=== PATIENT | male | born 1970 | race Hispanic/Latino ===

== ENCOUNTER 2017-08-12 01:57 | Observation (INO) | payer OTHER ==
[~2017-08-12] VITALS: Ht 167.6 cm; Wt 96.2 kg
[~2017-08-12 01:57] MED LIST: CLON2TAB11 PO; FENO135C4 PO; GABA-326 PO; GLYB-228 PO; LINA5TAB PO; LOSA50TA37 PO; METH500T6 PO; OXCA600T10 PO; PREG100C PO; ROSU20TA PO; TRAM50TA4 PO; VENL75TA63 PO; ZIPR80CA21 PO
[2017-08-12 02:16] LABS: APPEARANCE,URINE Clear (CLEAR); BILIRUBIN,URINE Negative (NEGATIVE); COLOR,URINE Yellow (YELLOW); GLUCOSE, URINE (UA) >=1000 mg/dL (NEGATIVE); KETONES,URINE Negative (NEGATIVE); LEUKOCYTE ESTERASE ,URINE Negative (NEGATIVE); NITRATE,URINE Negative (NEGATIVE); OCCULT BLOOD,URINE Negative (NEGATIVE); PH,URINE 5.5 (5.0-8.0); PROTEIN,URINE Negative (NEGATIVE); UROBILINOGEN,URINE 0.2 mg/dL (0.2-1.0)
[2017-08-12 02:24] LABS: BASOPHILS % (AUTO) 0.6 % (0.0-5.0); EOSINOPHILS % (AUTO) 4.5 % (0.0-8.0); HEMATOCRIT 44.5 % (42-54); LYMPHOCYTES % (AUTO) 21.2 % (21.0-51.0); MEAN CORPUSCULAR HEMOGLOBIN 30.1 pg (27.0-33.0); MEAN CORPUSCULAR HGB CONC 35.3 g/dL (32.0-36.0); MEAN CORPUSCULAR VOLUME 85.2 fL (79-99); MONOCYTES % (AUTO) 8.7 % (3.0-13.0); NUCLEATED RED BLOOD CELLS 0.1 % (0.0-0.19); PLATELET COUNT (AUTO) 319 K/uL (130-400); RED BLOOD CELL COUNT(AUTO) 5.22 MIL/uL (4.50-6.20); RED CELL DISTRIBUTION WIDTH 13.2 % (11.0-15.5); WHITE BLOOD COUNT (AUTO) 13.1 K/uL (4.8-10.8)
[2017-08-12 02:33] LABS: CREATININE 1.1 mg/dL (0.5-1.5); POTASSIUM 4.3 mmol/L (3.5-5.1)
[2017-08-12 02:33] LABS: BACTERIA,URINE Rare /HPF (None Seen); RBC,URINE 0-1 /HPF (0-1); SQUAMOUS EPITHELIAL CELL,UR 0-2 /HPF (0-2); WBC,URINE None Seen /HPF (0-1)
[2017-08-12 02:37] LABS: ALBUMIN 3.7 g/dL (3.5-5.0); BILIRUBIN,TOTAL 0.9 mg/dL (0.2-1.0); TOTAL PROTEIN, SERUM 8.7 g/dL (6.0-8.3)
[2017-08-12] MEDS ORDERED: ONDANSETRON HCL 4 MG/2 ML VIAL ONE (02:47)
[2017-08-12] MEDS ORDERED: KETOROLAC TROMETHAMINE 30MG/ML ONE (02:52)
[2017-08-12] MEDS ORDERED: INSULIN HUMULIN R 100 UNIT/ML 3ML ONE ×2 (02:53→12:31)
[2017-08-12] MEDS ORDERED: SODIUM CHLORIDE 0.9% 1000ML 1,000 ML IV ONE (05:35)
[2017-08-12 05:42] LABS: HEMOGLOBIN A1C 8.8 % (4.0-6.0)
[2017-08-12] MEDS ORDERED: MORPHINE SULFATE 2 MG/ML 1ML SYG IVP PRN (05:45)
[2017-08-12] MEDS ORDERED: ONDANSETRON HCL MDV 20ML 2 MG/ML VIAL IVP PRN (05:45)
[2017-08-12] MEDS ORDERED: SODIUM CHLORIDE 0.9% 1000ML 1,000 ML IV SCH (05:45)
[2017-08-12 05:50] LABS: CHOLESTEROL 161 mg/dL (<200); HDL CHOLESTEROL 24 mg/dL (29-71); LDL DIRECT 94 mg/dL (0-99); TRIGLYCERIDES 315 mg/dL (30-200)
[2017-08-12] MEDS ORDERED: MORPHINE SULFATE 2 MG/ML 1ML SYG ONE (08:44)
[2017-08-12 14:17] VITALS: BP 144/95
[2017-08-12] MEDS ORDERED: MORPHINE SULFATE 2 MG/ML 1ML SYG IV PRN (14:45)
[2017-08-12] MEDS: LACTATED RINGERS 1000ML 1,000 ML IV SCH (16:11)
[2017-08-12] MEDS: INSULIN R PO SS1 SQ SCH ×2 (16:30→21:00)
[2017-08-12 17:00] VITALS: BP 155/98
[2017-08-12 19:53] VITALS: BP 145/80
[2017-08-12 23:47] VITALS: BP 121/78
[2017-08-13] MEDS: HYDROCODONE/ACETAMINOPHEN 7.5/325 MG TAB PO PRN ×2 (00:52→08:47)
[2017-08-13 03:59] VITALS: BP 128/83
[2017-08-13 05:35] LABS: HEMATOCRIT 38.3 % (42-54); MEAN CORPUSCULAR HEMOGLOBIN 30.1 pg (27.0-33.0); MEAN CORPUSCULAR HGB CONC 35.8 g/dL (32.0-36.0); MEAN CORPUSCULAR VOLUME 84.2 fL (79-99); NUCLEATED RED BLOOD CELLS 0.1 % (0.0-0.19); PLATELET COUNT (AUTO) 281 K/uL (130-400); RED BLOOD CELL COUNT(AUTO) 4.55 MIL/uL (4.50-6.20); RED CELL DISTRIBUTION WIDTH 12.7 % (11.0-15.5); WHITE BLOOD COUNT (AUTO) 10.1 K/uL (4.8-10.8)
[2017-08-13 05:45] LABS: POTASSIUM 3.8 mmol/L (3.5-5.1)
[2017-08-13] MEDS: INSULIN R PO SS1 SQ SCH ×3 (06:23→16:30)
[2017-08-13 06:26] LABS: BAND NEUTROPHILS % (MANUAL) 1 % (0-2); EOSINOPHILS % (MANUAL) 2 % (1-6); LYMPHOCYTES % (MANUAL) 25 % (22-44); MAN.DIFF COMMENT-IMPRESSION MANUAL DIFFERENTIAL; MONOCYTES % (MANUAL) 2 % (2-9); PLATELET MORPHOLOGY COMMENT ADEQUATE; SEGMENTED NEUTROPHILS % 70 % (40-70)
[2017-08-13 08:00] VITALS: BP 151/86
[2017-08-13] MEDS ORDERED: PANTOPRAZOLE SODIUM 40 MG TABLET.DR PO SCH (09:00)
[2017-08-13] MEDS ORDERED: INSULIN GLARGINE 100 UNITS/ML 10 ML VIAL SQ SCH (09:00)
[2017-08-13] MEDS ORDERED: ENOXAPARIN SODIUM 40 MG/0.4 ML SYRINGE SQ SCH (09:00)
[2017-08-13] MEDS: LACTATED RINGERS 1000ML 1,000 ML IV SCH ×2 (10:02→14:20)
[2017-08-13 12:00] VITALS: BP 156/91
[2017-08-13 16:00] VITALS: BP 140/74
[2017-08-13 19:00] VITALS: BP 164/81
== END 2017-08-13 20:25 | disposition home or self-care (01) ==
LOC: EDH 01:57 → EDHIP 05:17 → INTOOBSV 05:17 → 3BH 13:42
PROVIDERS: ADMIT Internal Medicine Pulmonary Disease; ATTEND Internal Medicine Pulmonary Disease
DX: K85.90 Acute pancreatitis without necrosis or infection, unspecified (principal); E11.9 Type 2 diabetes mellitus without complications; I10 Essential (primary) hypertension
CPT/HCPCS: 36415 ×2; 74176; 76700; 80048; 80053; 80061; 81001; 82150; 82948 ×9; 83036; 83690 ×2; 85025 ×2; 96361 ×2; 96374; 96375; 99285; G0378 ×39; J1815 ×3; J1885; J2405; J7030; J7120 ×2; J1650

== ENCOUNTER → 2018-04-11 | Outpatient (CLI) | payer OTHER ==
[~2018-04-11] MED LIST changes: -CLON2TAB11 PO; +DIAZ10TA4 PO; +DICL75TA5 PO; -FENO135C4 PO; -GABA-326 PO; +GABA800T9 PO; +HYDR-4068 PO; +HYDR4 PO; +ICOS1CAP PO; -LINA5TAB PO; -LOSA50TA37 PO; +LOSA50TA64 PO; -METH500T6 PO; -OXCA600T10 PO; -PREG100C PO; -ROSU20TA PO; +SIME250C PO; +TIZA2CAP9 PO; -TRAM50TA4 PO; -VENL75TA63 PO; -ZIPR80CA21 PO; +[UNRECOGNIZED DRUG - CODE] PO
== END | disposition home or self-care (01) ==
LOC: RAH 08:37
PROVIDERS: ATTEND Internal Medicine Gastroenterology
DX: K76.0 Fatty (change of) liver, not elsewhere classified (principal)
CPT/HCPCS: 76700

== ENCOUNTER → 2018-09-18 | Outpatient (CLI) | payer OTHER | END | disposition home or self-care (01) | LOC: RAH 10:26 | PROVIDERS: ATTEND Internal Medicine Gastroenterology | DX: R11.0 Nausea (principal) | CPT/HCPCS: 78264; A9541 ==

== ENCOUNTER 2019-03-18 14:55 | Emergency (ER) | payer MEDICARE ==
[~2019-03-18 14:55] MED LIST changes: -GLYB-228 PO; +GLYB1TAB32 PO
[2019-03-18] MEDS ORDERED: ALBUTEROL SULFATE 0.083% 2.5 MG/3 ML INH IH ONE (15:32)
== END 2019-03-18 17:17 | disposition home or self-care (01) ==
LOC: EDH 14:55
DX: J10.1 Influenza due to other identified influenza virus with other respiratory manifestations (principal); M94.0 Chondrocostal junction syndrome [Tietze]; E11.9 Type 2 diabetes mellitus without complications; I10 Essential (primary) hypertension; F31.9 Bipolar disorder, unspecified; F41.9 Anxiety disorder, unspecified
CPT/HCPCS: 71046; 87804; 93005; 94640

== ENCOUNTER → 2019-04-30 | Outpatient (CLI) | payer MEDICARE ==
--- NOTE | 2019-04-30 21:30 | NUR ---
CURRENT MEDICATION LIST : LOSARTAN, GLIPIZIDE/METFORMIN, VASCEPA, GABAPENTIN, HYDRO/APAP, HYDROMORPHONE ,PRAVASTATIN, LINZESS, OMEPRAZOLE Addendum: 05/01/19 at 0057 by FRIDA BEAL Amended: Links added.
== END | disposition home or self-care (01) ==
LOC: CANSCHCLI → SLP 20:32
PROVIDERS: ATTEND Family Medicine
DX: G47.33 Obstructive sleep apnea (adult) (pediatric) (principal)
CPT/HCPCS: 95810

== ENCOUNTER 2019-05-01 02:41 | Emergency (ER) | payer MEDICARE ==
[2019-05-01] MEDS ORDERED: ORPHENADRINE CITRATE 30 MG/ML ML ONE (03:51)
[2019-05-01] MEDS ORDERED: PANTOPRAZOLE SODIUM 40 MG TABLET.DR ONE (03:51)
[2019-05-01] MEDS ORDERED: ONDANSETRON ODT 4 MG TAB ONE (03:52)
== END 2019-05-01 06:08 | disposition home or self-care (01) ==
LOC: EDH 02:41
DX: I10 Essential (primary) hypertension (principal); E11.649 Type 2 diabetes mellitus with hypoglycemia without coma; M62.838 Other muscle spasm; F41.9 Anxiety disorder, unspecified; F31.9 Bipolar disorder, unspecified
CPT/HCPCS: 82948; 96372; 99283; J2360

== ENCOUNTER → 2019-07-31 | Outpatient (CLI) | payer MEDICARE | END | disposition home or self-care (01) | LOC: RAH 08:38 | PROVIDERS: ATTEND Internal Medicine Gastroenterology | DX: K21.9 Gastro-esophageal reflux disease without esophagitis (principal); R13.10 Dysphagia, unspecified | CPT/HCPCS: 74240 ==

== ENCOUNTER → 2020-06-15 | Outpatient (CLI) | payer MEDICARE | END | disposition home or self-care (01) | LOC: SHCH 11:08 | PROVIDERS: ATTEND Internal Medicine Cardiovascular Disease | DX: R07.9 Chest pain, unspecified (principal) | CPT/HCPCS: 93306; 93356 ==

== ENCOUNTER → 2020-06-26 | Outpatient (CLI) | payer MEDICARE ==
[~2020-06-26] VITALS: Ht 167.6 cm; Wt 98.4 kg
[~2020-06-26] MED LIST changes: +REGADENOSON 0.4 MG/5 ML PF SYG IVP SCH
== END | disposition home or self-care (01) ==
LOC: SHCH 08:25
PROVIDERS: ATTEND Internal Medicine Cardiovascular Disease
DX: R07.9 Chest pain, unspecified (principal)
CPT/HCPCS: 78452; 93017; 96374; A9500 ×2

== ENCOUNTER → 2020-10-23 | Outpatient (CLI) | payer MEDICARE ==
[~2020-10-23] MED LIST changes: -REGADENOSON 0.4 MG/5 ML PF SYG IVP SCH
== END | disposition home or self-care (01) ==
LOC: SHCH 08:25
PROVIDERS: ATTEND Internal Medicine Cardiovascular Disease
DX: I10 Essential (primary) hypertension (principal)
CPT/HCPCS: 93975

== ENCOUNTER 2021-09-27 13:26 | Emergency (ER) | payer OTHER, MEDICARE ==
[~2021-09-27] VITALS: Ht 167.6 cm; Wt 93.4 kg
[~2021-09-27 13:26] MED LIST changes: +GLYB-173 PO; -GLYB1TAB32 PO
[2021-09-27] MEDS ORDERED: 0.9%NACL 1000ML 1,000 ML IV SCH (14:30)
[2021-09-27] MEDS ORDERED: KETOROLAC 15MG/ML VIAL (15MG/ML) IM ONE (14:30)
[2021-09-27] MEDS ORDERED: DiphenhydrAMINE HCL 50 MG/ML VIAL IV ONE (14:30)
[2021-09-27] MEDS ORDERED: FAMOTIDINE 20MG VIAL IV ONE (14:30)
[2021-09-27 14:42] LABS: HEMATOCRIT 44.5 % (42-54); MEAN CORPUSCULAR HEMOGLOBIN 28.3 pg (27.0-33.0); MEAN CORPUSCULAR HGB CONC 33.7 g/dL (32.0-36.0); PLATELET COUNT (AUTO) 215 K/uL (130-400); RED CELL DISTRIBUTION WIDTH 12.7 % (11.0-15.5); WHITE BLOOD COUNT (AUTO) 5.7 K/uL (4.8-10.8)
[2021-09-27 14:59] LABS: ALBUMIN 3.5 g/dL (3.5-5.0); CREATININE 1.6 mg/dL (0.5-1.5); POTASSIUM 4.5 mmol/L (3.5-5.1); TOTAL PROTEIN, SERUM 8.1 g/dL (6.0-8.3)
[2021-09-27 15:01] LABS: BASOPHILS % (AUTO) 0.3 % (0.0-5.0); EOSINOPHILS % (AUTO) 1.2 % (0.0-8.0); LYMPHOCYTES % (AUTO) 24.6 % (21.0-51.0); NEUTROPHILS % (AUTO) 62.4 % (40.0-77.0)
[2021-09-27] MEDS ORDERED: LORA-868 PO (15:16)
[2021-09-27] MEDS ORDERED: ALBUHFA IH (15:16)
[2021-09-27 16:27] VITALS: BP 122/51
== END 2021-09-27 16:46 | disposition home or self-care (01) ==
LOC: EDH 13:26
DX: U07.1 COVID-19 (principal); E11.9 Type 2 diabetes mellitus without complications; E78.00 Pure hypercholesterolemia, unspecified; I10 Essential (primary) hypertension; E86.0 Dehydration; Z79.84 Long term (current) use of oral hypoglycemic drugs; Z79.899 Other long term (current) drug therapy
CPT/HCPCS: 99284; 80053; 85025; 36415; 71045; 96372; 96374; 96361; 96375; J1200; J3490; J7030; J1885

== ENCOUNTER 2022-01-25 15:34 | Emergency (ER) | payer OTHER, MEDICARE ==
[~2022-01-25] VITALS: Ht 167.6 cm; Wt 92.1 kg
[~2022-01-25 15:34] MED LIST changes: +ALBUHFA IH; +LORA-868 PO; +[UNRECOGNIZED DRUG - CODE] PO; -[UNRECOGNIZED DRUG - CODE] PO
[2022-01-25 15:41] VITALS: BP 168/87
[2022-01-25] MEDS ORDERED: TRAMADOL HCL 50 MG TABLET PO ONE (16:00)
[2022-01-25] MEDS ORDERED: TRAMADOL HCL 50 MG TABLET ONE (16:11)
[2022-01-25] MEDS ORDERED: ACET-66 PO (16:54)
== END 2022-01-25 17:11 | disposition home or self-care (01) ==
LOC: EDH 15:34
DX: M25.571 Pain in right ankle and joints of right foot (principal); E11.9 Type 2 diabetes mellitus without complications; E78.00 Pure hypercholesterolemia, unspecified; I10 Essential (primary) hypertension; Z90.89 Acquired absence of other organs
CPT/HCPCS: 73590; 73610; 73630

== ENCOUNTER 2022-12-03 16:24 | Emergency (ER) | payer OTHER, MEDICARE ==
[~2022-12-03] VITALS: Ht 167.6 cm; Wt 95.3 kg
[~2022-12-03 16:24] MED LIST changes: +ACET-66 PO; +NITR0.4T50 SL; +OMEP40CA21 PO
[2022-12-03 17:05] LABS: HEMATOCRIT 39.1 % (42-54); MEAN CORPUSCULAR HEMOGLOBIN 30.2 pg (27.0-33.0); MEAN CORPUSCULAR VOLUME 86.1 fL (79-99); RED BLOOD CELL COUNT(AUTO) 4.54 MIL/uL (4.50-6.20); RED CELL DISTRIBUTION WIDTH 12.1 % (11.0-15.5); WHITE BLOOD COUNT (AUTO) 14.5 K/uL (4.8-10.8)
[2022-12-03 17:12] LABS: CREATININE 1.5 mg/dL (0.5-1.5); POTASSIUM 4.5 mmol/L (3.5-5.1)
[2022-12-03 17:17] LABS: ALBUMIN 3.6 g/dL (3.5-5.0); BILIRUBIN,TOTAL 0.9 mg/dL (0.2-1.0); TOTAL PROTEIN, SERUM 7.6 g/dL (6.0-8.3)
[2022-12-03 17:19] LABS: SARS-CoV-2, RNA, NAAT NEGATIVE SARS CoV-2 (NEGATIVE)
[2022-12-03 17:21] LABS: INFLUENZA TYPE A Negative For Type A (NEGATIVE); INFLUENZA TYPE B Negative For Type B (NEGATIVE)
[2022-12-03] MEDS ORDERED: IOHEXOL-350 75 ML VIAL IV ONE (17:58)
[2022-12-03 18:34] VITALS: BP 146/76; PULSE 82; RESP 19; O2SAT 98
[2022-12-03] MEDS ORDERED: ONDA4TAB10 PO (19:20)
== END 2022-12-03 19:37 | disposition home or self-care (01) ==
LOC: EDH 16:24
DX: F41.9 Anxiety disorder, unspecified (principal); R14.0 Abdominal distension (gaseous); R11.0 Nausea; E11.65 Type 2 diabetes mellitus with hyperglycemia; I10 Essential (primary) hypertension; E78.00 Pure hypercholesterolemia, unspecified; Z90.89 Acquired absence of other organs; Z20.822 Contact with and (suspected) exposure to COVID-19; Z79.899 Other long term (current) drug therapy; Z98.890 Other specified postprocedural states
CPT/HCPCS: 99285 ×2; 74177; 71045; 87635; 82550; 83735; 84484 ×2; 83880; 83690; 85025; 85027; 85378; 87804 ×2; 81001; 36415 ×2; 93005 ×2; 80053 ×2; C9803; Q9967

== ENCOUNTER → 2023-10-12 | Outpatient (CLI) | payer OTHER, MEDICARE ==
[~2023-10-12] MED LIST changes: +ONDA-243 PO
[2023-10-12 16:16] LABS: BASOPHILS # (AUTO) 0.04 K/uL (0.00-0.20); BASOPHILS % (AUTO) 0.4 % (0.0-5.0); EOSINOPHILS # (AUTO) 0.27 K/uL (0.00-0.70); EOSINOPHILS % (AUTO) 2.9 % (0.0-8.0); HEMATOCRIT 43.5 % (42-54); IMMATURE GRANULOCYTE ABSOLUTE 0.03 K/uL (0-1); LYMPHOCYTES # (AUTO) 2.8 K/uL (1.0-4.8); MEAN CORPUSCULAR HEMOGLOBIN 29.7 pg (27.0-33.0); MEAN CORPUSCULAR VOLUME 87.3 fL (79-99); MONOCYTES # (AUTO) 0.8 K/uL (0.1-1.0); MONOCYTES % (AUTO) 8.1 % (3.0-13.0); NEUTROPHILS # (AUTO) 5.4 K/uL (1.8-7.7); NEUTROPHILS % (AUTO) 58.3 % (40.0-77.0); PLATELET COUNT (AUTO) 338 K/uL (130-400); RED BLOOD CELL COUNT(AUTO) 4.98 MIL/uL (4.50-6.20); RED CELL DISTRIBUTION WIDTH 13.2 % (11.0-15.5); WHITE BLOOD COUNT (AUTO) 9.2 K/uL (4.8-10.8)
[2023-10-12 16:27] LABS: ALBUMIN 3.7 g/dL (3.5-5.0); BILIRUBIN,TOTAL 0.9 mg/dL (0.2-1.0); CREATININE 1.2 mg/dL (0.5-1.3); MAGNESIUM 1.5 mg/dL (1.80-2.40); TOTAL PROTEIN, SERUM 8.2 g/dL (6.0-8.3)
== END | disposition home or self-care (01) ==
LOC: LAB 15:06
PROVIDERS: ATTEND Physician Assistant
DX: I10 Essential (primary) hypertension (principal); E11.9 Type 2 diabetes mellitus without complications
CPT/HCPCS: 36415; 80053; 82085; 82550; 83735; 85025